=== PATIENT | male | born 1995 | race African-American/Black ===

== ENCOUNTER 2025-02-10 03:21 | Emergency (ER) | payer SELFPAY ==
[2025-02-10] MEDS ORDERED: Acetaminophen 500 MG TAB ONE (03:48)
== END 2025-02-10 04:43 ==
LOC: MADERS 03:21
DX: S33.5XXA Sprain of ligaments of lumbar spine, initial encounter (principal); S90.812A Abrasion, left foot, initial encounter; S90.811A Abrasion, right foot, initial encounter; S20.412A Abrasion of left back wall of thorax, initial encounter; F17.210 Nicotine dependence, cigarettes, uncomplicated; V89.2XXA Person injured in unspecified motor-vehicle accident, traffic, initial encounter
CPT/HCPCS: 70450; 72131